=== PATIENT | male | born 1990 | race Caucasian/White ===

== ENCOUNTER 2017-04-05 17:19 | Emergency (ER) | payer SELFPAY ==
[2017-04-05 17:36] VITALS: BP 135/78
[2017-04-05] MEDS ORDERED: HYDROCODONE/ACETAMINOPHEN 5-325 MG TABLET PO ONE (19:13)
[2017-04-05] MEDS ORDERED: CEPHALEXIN 500 MG CAPSULE PO ONE (19:13)
[2017-04-05] MEDS ORDERED: DIPH/PERTUSS(ACELL)/TETANUS VAC/PF 0.5 ML SYR (>=10YO) IM ONE (19:13)
--- NOTE | 2017-04-05 19:18 | ER Document Report ---
HPI - HPI Patient complains to provider of: finger injury Onset: This afternoon Onset/Duration: Sudden Quality of pain: Sharp Pain Level: 4 Context: Patient states that he was using a nail gun to nail railing up. Patient was holding the board and the nail was aimed downward but hit a knot in the wood and bounced off of the knot puncturing his left fifth finger. Patient complains of left fifth finger pain is worse with movement. Patient states that he did clean the wound after the injury occurred. Associated Symptoms: Other - Left fifth finger injury Exacerbated by: Movement Relieved by: Denies Similar symptoms previously: No Recently seen / treated by doctor: No - ROS ROS below otherwise negative: Yes Systems Reviewed and Negative: Yes All other systems reviewed and negative - CONSTITUTIONAL Constitutional: DENIES: Fever, Chills - NEURO Neurology: DENIES: Weakness - MUSCULOSKELETAL Musculoskeletal: REPORTS: Extremity pain - Left fifth finger pain - DERM Skin Color: Normal Skin Problems: Puncture Wound Past Medical History - General Information source: Patient - Social History Smoking Status: Current Every Day Smoker Frequency of alcohol use: None Drug Abuse: None Occupation: construction Lives with: Family Family History: Reviewed & Not Pertinent Patient has suicidal ideation: No Patient has homicidal ideation: No - Medical History Medical History: Negative Renal/ Medical History: Denies: Hx Peritoneal Dialysis Past Surgical History: Reports: Hx Orthopedic Surgery - right wrist surg. - Immunizations Hx Diphtheria, Pertussis, Tetanus Vaccination: Yes Vertical Provider Document - CONSTITUTIONAL Agree With Documented VS: Yes Exam Limitations: No Limitations General Appearance: WD/WN, No Apparent Distress - INFECTION CONTROL TRAVEL OUTSIDE OF THE [place] IN LAST 30 DAYS: No - HEENT HEENT: Atraumatic, Normocephalic - NECK Neck: Normal Inspection - RESPIRATORY Respiratory: No Respiratory Distress O2 Sat by Pulse Oximetry: 99 - CARDIOVASCULAR Pulses: Normal: Radial - MUSCULOSKELETAL/EXTREMETIES Musculoskeletal/Extremeties: MAEW, Tender - Left fifth finger tenderness about the PIP joint. Patient with superficial appearing puncture wound to ulnar aspect of left fifth finger near the PIP joint, No Edema. negative: Eccymosis - NEURO Level of Consciousness: Awake, Alert, Appropriate Motor/Sensory: No Motor Deficit - DERM Integumentary: Warm, Dry Notes: Puncture wound to left fifth finger. Course - Re-evaluation Re-evalutation: 04/05/17 19:18 The patient has been informed that they may have pre-hypertension or hypertension based on a blood pressure reading in the emergency department. I recommend that patient call the primary care provider listed on their discharge instructions or a physician of their choice by this week to arrange follow-up for further evaluation of possible pre-hypertension her hypertension. - Vital Signs Vital signs: Temp Pulse Resp BP Pulse Ox 98.6 F 71 16 135/78 H 99 04/05/17 17:35 04/05/17 17:35 04/05/17 17:35 04/05/17 17:35 04/05/17 17:35 - Diagnostic Test Radiology reviewed: Pending, Image reviewed Procedures - Immobilization Left 5th digit Pre-Proc Neuro Vasc Exam: Normal Immobilizer type: Finger splint (Static) Performed by: PCT Post-Proc Neuro Vasc Exam: Normal Alignment checked and good: Yes Discharge - Discharge Clinical Impression: Puncture wound, Elevated blood pressure reading Injury of finger Qualifiers: Encounter type: initial encounter Laterality: left Qualified Code(s): S69.92XA - Unspecified injury of left wrist, hand and finger(s), initial encounter Condition: Stable Disposition: HOME, SELF-CARE Instructions: Puncture Wound ([facility]), Cephalexin ([facility]), Tetanus Immunization Given ([facility]) Additional Instructions: Return immediately for any new or worsening symptoms Followup with your primary care provider, call tomorrow to make a followup appointment Follow up with orthopedic hand specialist on Friday for any continued pain or problems Your blood pressure was elevated today, recheck with primary doctor in the next week to have this reevaluated. Prescriptions: Cephalexin Monohydrate [Keflex 500 mg Capsule] 500 mg PO Q6H 5 Days Hydrocodone/Acetaminophen [Millsap 5-325 Tablet] 1 each PO Q4 PRN #15 tablet PRN Reason: Forms: Elevated Blood Pressure, Return to Work Referrals: IRAIDA MAGANA DO [ACTIVE STAFF] - 04/07/17
== END 2017-04-05 19:52 | disposition home or self-care (01) ==
LOC: ER 17:19
PROC: 2W3KX1Z Immobilization of Left Finger using Splint (ICD-10-PCS; principal; 2017-04-05)
DX: S69.92XA Unspecified injury of left wrist, hand and finger(s), initial encounter (principal); S61.237A Puncture wound without foreign body of left little finger without damage to nail, initial encounter; R03.0 Elevated blood-pressure reading, without diagnosis of hypertension; W26.8XXA Contact with other sharp object(s), not elsewhere classified, initial encounter
CPT/HCPCS: 90471; 90715; 99283

== ENCOUNTER 2018-04-15 17:19 | Emergency (ER) | payer SELFPAY ==
[2018-04-15] MEDS ORDERED: FENTANYL CITRATE INJ/PF 100 MCG/2 ML AMPUL IV ONE (17:31)
[2018-04-15] MEDS ORDERED: CEFAZOLIN 1 GM/D5W RTU 1 GM/50 ML RTUPB IV ONE (17:33)
--- NOTE | 2018-04-15 17:33 | ER Document Report ---
ED Medical Screen (RME) - General Chief Complaint: Foreign Body Stated Complaint: HAND INJURY Time Seen by Provider: 04/15/18 17:29 Notes: RAPID MEDICAL EVALUATION DISCLOSURE I have seen this patient as part of a Rapid Medical Evaluation and, if applicable, placed any initially appropriate orders. The patient will be seen and fully evaluated, including a full history and physical exam, by a provider ( in Main ED or Fast Track) when a room becomes available. 27-year-old male here with complaints of left thumb pain after he shot himself in the thumb with a nail gun EXAM Nail protruding from left thumb TRAVEL OUTSIDE OF THE [place] IN LAST 30 DAYS: No - Related Data Allergies/Adverse Reactions: No Known Allergies Allergy (Verified 04/15/18 17:22) Past Medical History - Social History Chew tobacco use (# tins/day): No Frequency of alcohol use: Occasional Drug Abuse: None Renal/ Medical History: Denies: Hx Peritoneal Dialysis Past Surgical History: Reports: Hx Orthopedic Surgery - right wrist surg. - Immunizations Hx Diphtheria, Pertussis, Tetanus Vaccination: Yes Physical Exam - Vital signs Vitals: Temp Pulse Resp BP Pulse Ox 98.4 F 97 24 H 135/81 H 99 04/15/18 17:25 04/15/18 17:25 04/15/18 17:25 04/15/18 17:25 04/15/18 17:25 Course - Vital Signs Vital signs: Temp Pulse Resp BP Pulse Ox 98.4 F 97 24 H 135/81 H 99 04/15/18 17:25 04/15/18 17:25 04/15/18 17:25 04/15/18 17:25 04/15/18 17:25
[2018-04-15] MEDS ORDERED: HYDROMORPHONE HCL INJ/PF 2 MG/ML AMPULE IV ONE ×2 (18:07→18:59)
[2018-04-15] MEDS ORDERED: LIDOCAINE 1% INJ-PF (10 MG/ML) 30 ML SDV ONE (18:14)
--- NOTE | 2018-04-15 18:44 | RADIOLOGY REPORT (SQ) ---
EXAM DESCRIPTION: FINGER LEFT COMPLETED DATE/TIME: 04/15/2018 6:03 pm REASON FOR STUDY: nail in L thumb COMPARISON: None. NUMBER OF VIEWS: Three views. TECHNIQUE: AP, lateral, and oblique images acquired of the left thumb. LIMITATIONS: None. FINDINGS: MINERALIZATION: Normal. BONES: There is a bent nail that appears to be in the volar aspect of the 1st distal phalanx. SOFT TISSUES: No soft tissue swelling. No foreign body. OTHER: No other significant finding. IMPRESSION: Nail in the 1st distal phalanx. It may be helpful to obtain some tangential views to se e if this is in the bone or merely adjacent to the bone. COMMENT: SITE OF TRAUMA/COMPLAINT MARKED/STAMP COMPLETED: Yes TECHNICAL DOCUMENTATION: JOB ID: [id number] [employer]- All Rights Reserved Reading location - IP/workstation name: [email or web address]
--- NOTE | 2018-04-15 18:51 | ER Document Report ---
ED General - General Chief Complaint: Foreign Body Stated Complaint: HAND INJURY Time Seen by Provider: 04/15/18 17:29 TRAVEL OUTSIDE OF THE [place] IN LAST 30 DAYS: No - HPI Notes: 27-year-old male who presents with foreign body in his left thumb. Just prior to arrival, patient was using a nail gun when he accidentally shot himself in the volar surface of his thumb embedded in nail which she cut the top off of. Complains of severe sharp pain, throbbing, nonradiating. No numbness. He is right-hand dominant. Tetanus up-to-date within 5 years. He was seen by the physician in triage ordered x-rays and Ancef. He also received additional opiate analgesics. No other modifying factors, no other associated symptoms, no other provocative or palliative factors. - Related Data Allergies/Adverse Reactions: No Known Allergies Allergy (Verified 04/15/18 17:22) Past Medical History - Social History Smoking Status: Current Every Day Smoker Chew tobacco use (# tins/day): No Frequency of alcohol use: Occasional Drug Abuse: None Family History: Reviewed & Not Pertinent Patient has suicidal ideation: No Patient has homicidal ideation: No Renal/ Medical History: Denies: Hx Peritoneal Dialysis Past Surgical History: Reports: Hx Orthopedic Surgery - right wrist surg. - Immunizations Hx Diphtheria, Pertussis, Tetanus Vaccination: Yes Review of Systems - Review of Systems Notes: Review of systems as in history of present illness, otherwise no significant headache, chest pain, abdominal pain. Physical Exam - Vital signs Vitals: Temp Pulse Resp BP Pulse Ox 98.4 F 97 24 H 135/81 H 99 04/15/18 17:25 04/15/18 17:25 04/15/18 17:25 04/15/18 17:25 04/15/18 17:25 - Notes Notes: General: Well-developed, well-nourished HEENT: Normocephalic. No external trauma noted. No calabrese sign, no hemotympanum. Mucosa is moist. No intraoral trauma. Neck: Midline trachea, no JVD. No midline cervical spine tenderness. No step- off or deformity. Chest: Normal excursion, no accessory muscle use. No gross trauma. Abdomen: Soft, nondistended. Nontender. No bruising. Pelvis: Stable. Vascular: Strong and symmetric upper and lower extremity pulses. Well-perfused extremities. Motor: Normal tone and power. Neurologic: Alert, nonfocal. Sensation symmetric and intact. Skin: No significant lacerations or purpura. Extremities: No cyanosis. There is a large nail extending on the dorsal surface of the distal thumb pad. Thumb is dirty, bleeding is controlled. Distal sensation intact. Cap refill is normal Course - Re-evaluation Re-evalutation: 04/15/18 18:50 7-year-old male the after mentioned symptoms. Plain films are reviewed, I could visualize the nail but does not appear to involve bone, no fractures noted. However there is a small melody noted on the intra-tissue portion. Patient did undergo digital block with 1% lidocaine. I attempted to remove the foreign body but was unable to do so. We are going to repeat the x-ray to see where the melody is located. 04/15/18 20:03 Patient repeat x-ray shows some movement but melody is still retained. Case discussed with the on-call orthopedic surgeon, after discussion we elected to proceed with small local incision to allow release of the bar and attempted removal again. This was successful and done as described below. Repeat x-ray shows no retained foreign body. There appears to be a small fracture fragment on the films. He is placed on aluminum splint, sent home on Keflex, analgesics, will follow up as an outpatient with orthopedic surgery. Procedure note: Digital block was performed previously. Areas cleansed using chlorhexidine. After sterile draping a small 3 mm incision is made down at the base of the foreign body extended proximally. Was able to then easily remove the foreign body, bleeding is controlled. Prior to that wound is irrigated. - Vital Signs Vital signs: Temp Pulse Resp BP Pulse Ox 98.4 F 97 24 H 135/81 H 99 04/15/18 17:25 04/15/18 17:25 04/15/18 17:25 04/15/18 17:25 04/15/18 17:25 Discharge - Discharge Clinical Impression: Foreign body hand Qualifiers: Encounter type: initial encounter Laterality: left Qualified Code(s): S60.552A - Superficial foreign body of left hand, initial encounter Disposition: HOME, SELF-CARE Instructions: Foreign Body ([facility]) Prescriptions: Cephalexin Monohydrate [Keflex 500 mg Capsule] 500 mg PO Q6H 7 Days capsule Hydrocodone Bit/Acetaminophen [Hydrocodon-Acetaminophen 5-325] 1 each PO Q6 2 Days tablet
--- NOTE | 2018-04-15 19:14 | RADIOLOGY REPORT (SQ) ---
EXAM DESCRIPTION: FINGER LEFT COMPLETED DATE/TIME: 04/15/2018 6:59 pm REASON FOR STUDY: Assess melody location on FB after removal attempt COMPARISON: None. NUMBER OF VIEWS: Two views. TECHNIQUE: AP and lateral images acquired of the left thumb. LIMITATIONS: None. FINDINGS: Additional views of the left thumb once again show a nail on the volar aspect of the dista l phalanx. This cannot be from the bone on any of the images we have so far. IMPRESSION: The nail may be within the bone of the distal phalanx on the volar aspect COMMENT: SITE OF TRAUMA/COMPLAINT MARKED/STAMP COMPLETED: YES. TECHNICAL DOCUMENTATION: JOB ID: [id number] [employer]- All Rights Reserved Reading location - IP/workstation name: [email or web address]
--- NOTE | 2018-04-15 20:29 | RADIOLOGY REPORT (SQ) ---
EXAM DESCRIPTION: FINGER LEFT COMPLETED DATE/TIME: 04/15/2018 8:05 pm REASON FOR STUDY: FB removal COMPARISON: None. NUMBER OF VIEWS: Two views. TECHNIQUE: AP and lateral images acquired of the left thumb. LIMITATIONS: None. FINDINGS: MINERALIZATION: Normal. BONES: No acute fracture or dislocation. No worrisome bone lesions. SOFT TISSUES: No soft tissue swelling. No foreign body. OTHER: No other significant finding. IMPRESSION: NO RADIOGRAPHIC EVIDENCE OF ACUTE INJURY. COMMENT: SITE OF TRAUMA/COMPLAINT MARKED/STAMP COMPLETED: Yes TECHNICAL DOCUMENTATION: JOB ID: [id number] [employer]- All Rights Reserved Reading location - IP/workstation name: [email or web address]
[2018-04-15] MEDS ORDERED: HYDROCODONE/ACETAMINOPHEN 5-325 MG TABLET PO ONE (20:31)
[2018-04-15 20:50] VITALS: BP 127/81
== END 2018-04-15 20:50 | disposition home or self-care (01) ==
LOC: ER 17:19
PROC: 0JCK0ZZ Extirpation of Matter from Left Hand Subcutaneous Tissue and Fascia, Open Approach (ICD-10-PCS; principal; 2018-04-15)
DX: S61.142A Puncture wound with foreign body of left thumb with damage to nail, initial encounter (principal); W29.4XXA Contact with nail gun, initial encounter; F17.200 Nicotine dependence, unspecified, uncomplicated
CPT/HCPCS: 99283; 96375; 96365; 73140; 20103; J0690; J3010; J3490; J1170

== ENCOUNTER 2018-05-07 17:26 | Emergency (ER) | payer SELFPAY ==
[2018-05-07] MEDS ORDERED: FAMOTIDINE 20 MG TABLET PO ONE (18:18)
[2018-05-07] MEDS ORDERED: DEXAMETHASONE SOD PHOS INJ 10 MG/1 ML VIAL IM ONE (18:18)
[2018-05-07] MEDS ORDERED: DIPHENHYDRAMINE HCL 50 MG/ML VIAL IM ONE (18:18)
--- NOTE | 2018-05-07 18:23 | ER Document Report ---
ED Allergic Reaction - General Chief Complaint: Allergic Reaction Stated Complaint: POSSIBLE BEE STING Time Seen by Provider: 05/07/18 18:02 Mode of Arrival: Ambulatory Information source: Patient Notes: 27-year-old male presented ED for complaint of pain to his right foot after he was stung by wasp yesterday. He states he took 25 mg of Benadryl yesterday and has not had any since then. He has not taken any Tylenol or Motrin for this pain. TRAVEL OUTSIDE OF THE [place] IN LAST 30 DAYS: No - HPI Onset: Yesterday Onset/Duration: Persistent Quality of pain: Achy Severity: Moderate Pain Level: 2 Identified cause: No - Stung by a bee Swelling: Feet - Right foot and ankle Associated symptoms: None Similar symptoms previously: Yes Recently seen / treated by doctor: No - Related Data Allergies/Adverse Reactions: wasps Allergy (Uncoded 05/07/18 17:28) Past Medical History - General Information source: Patient - Social History Smoking Status: Current Every Day Smoker Cigarette use (# per day): Yes - One half pack per day Chew tobacco use (# tins/day): No Smoking Education Provided: Yes - 4 minutes Frequency of alcohol use: None Drug Abuse: None Lives with: Family Family History: Reviewed & Not Pertinent Patient has suicidal ideation: No Patient has homicidal ideation: No - Past Medical History Cardiac Medical History: Reports: None Pulmonary Medical History: Reports: None EENT Medical History: Reports: None Neurological Medical History: Reports: None Endocrine Medical History: Reports: None Renal/ Medical History: Reports: None Malignancy Medical History: Reports None GI Medical History: Reports: None Musculoskeltal Medical History: Reports Hx Musculoskeletal Deformity, Reports Hx Musculoskeletal Trauma Skin Medical History: Reports None Psychiatric Medical History: Reports: None Traumatic Medical History: Reports: Hx Fractures - Right wrist fracture right thumb Infectious Medical History: Reports: None Past Surgical History: Reports: Hx Oral Surgery - Silver teeth, Hx Orthopedic Surgery - right wrist surg. - Immunizations Hx Diphtheria, Pertussis, Tetanus Vaccination: Yes Review of Systems - Review of Systems Constitutional: No symptoms reported EENT: No symptoms reported Cardiovascular: No symptoms reported Respiratory: No symptoms reported Gastrointestinal: No symptoms reported Genitourinary: No symptoms reported Male Genitourinary: No symptoms reported Musculoskeletal: No symptoms reported Skin: Other - Pain swelling to right foot and ankle from a wasp sting yesterday Hematologic/Lymphatic: No symptoms reported Neurological/Psychological: No symptoms reported Physical Exam - Vital signs Vitals: Temp Pulse Resp BP Pulse Ox 98.1 F 110 H 18 122/97 H 98 05/07/18 17:32 05/07/18 17:32 05/07/18 17:32 05/07/18 17:32 05/07/18 17:32 Interpretation: Normal - General General appearance: Appears well, Alert - HEENT Head: Normocephalic, Atraumatic Eyes: Normal Pupils: PERRL - Respiratory Respiratory status: No respiratory distress Chest status: Nontender Breath sounds: Normal Chest palpation: Normal - Cardiovascular Rhythm: Regular Heart sounds: Normal auscultation Murmur: No - Abdominal Inspection: Normal Distension: No distension Bowel sounds: Normal Tenderness: Nontender Organomegaly: No organomegaly - Back Back: Normal, Nontender - Extremities General upper extremity: Normal inspection, Nontender, Normal color, Normal ROM , Normal temperature General lower extremity: Normal color, Normal ROM, Normal temperature, Normal weight bearing. No: Corinne's sign Ankle: Tender, Edema. No: Limited ROM, Unable to bear weight Foot: Tender, Edema - Due to a bee sting, No evidence of FB. No: Unable to bear weight - Neurological Neuro grossly intact: Yes Cognition: Normal Orientation: AAOx4 Lisa Coma Scale Eye Opening: Spontaneous Lisa Coma Scale Verbal: Oriented [place] Coma Scale Motor: Obeys Commands Lisa Coma Scale Total: 15 Speech: Normal Motor strength normal: LUE, RUE, LLE, RLE Sensory: Normal - Psychological Associated symptoms: Normal affect, Normal mood - Skin Skin Temperature: Warm Skin Moisture: Dry Skin Color: Normal Course - Re-evaluation Re-evalutation: 05/07/18 21:14 Patient was treated with Decadron Benadryl and Pepcid in the emergency room for swelling and pain from an insect bite. He was discharged home with prescription for Vistaril and prednisone and instructed to follow-up with his primary doctor. - Vital Signs Vital signs: Temp Pulse Resp BP Pulse Ox 98.1 F 88 18 120/83 99 05/07/18 17:32 05/07/18 18:32 05/07/18 18:32 05/07/18 18:32 05/07/18 18:32 Discharge - Discharge Clinical Impression: Bee sting reaction Qualifiers: Encounter type: initial encounter Injury intent: accidental or unintentional Qualified Code(s): T63.441A - Toxic effect of venom of bees, accidental ( unintentional), initial encounter Condition: Stable Disposition: HOME, SELF-CARE Instructions: Family Physicians / Practices Additional Instructions: Insect Sting You've been stung by an insect. The venom can cause pain, redness, and swelling. Right after the sting, we sometimes use adrenaline to reduce the reaction to the venom. This also stops any allergic reaction. You should apply cold compresses, rest and elevate the affected part, and take antihistamines. A more severe, itchy red swelling sometimes develops the next day. This is a local allergic reaction to the venom. This local allergy isn't dangerous. We treat it with cortisone-type medicine and antihistamines. Sometimes we use antibiotics if we're worried about infection. If you develop a fever, chills, a red streak, or swollen glands in the area of the bite, infection may be starting. Return at once. Insect stings from the bee and hornet family may cause a severe allergic reaction. Symptoms include hoarseness, shortness of breath, general redness of the skin, general itching, or lightheadedness. If any of these symptoms occur, you'll be treated with adrenalin and cortisone-like steroids. You should carry an "Anaphylaxis Kit" with you in the summer months so you can administer these medications to yourself before getting emergency medical care. STEROID MEDICATION INJECTION: You have been given an injection of medicine of the cortisone/steroid class. This medication is used to control inflammation or allergy. It is often continued as a pill for a short period of time, until the acute process subsides. There are usually no side effects from short-term use of cortisone-like medications. Some persons feel an increased sense of well-being and are not sleepy at bedtime. Long-term use of cortisone medications is best avoided, unless required for a severe condition. If your condition does not remit, or relapses after the course of corticosteroid medication, you should consult your physician. STEROID MEDICATION: You have been given a medicine of the cortisone/steroid class. This medication is used to control inflammation or allergy. It is usually only given for a short period of time, until the acute process subsides. There are usually no side effects from short-term use of cortisone-like medications. Some persons feel an increased sense of well-being and are not sleepy at bedtime. Long-term use of cortisone medications is best avoided, unless required for a severe condition. If your condition does not remit, or relapses after the course of corticosteroid medication, you should consult your physician. ACID-SUPPRESSING MEDICATION: You have a prescription for medicine which reduces the stomach's secretion of acid. Examples include Zantac, Tagament, and Pepcid. These drugs are often used to allow healing of ulcers or esophagitis. They may be needed to prevent recurrence of ulcers in some patients, or to prevent damage from acid reflux in the esophagus. Take all medication as prescribed, even after the pain is gone. Regular antacids may be added as needed if you have symptoms while taking this medicine. These medications sometimes are prescribed for allergic reactions because they have anti-histaminic effects and relieve the rash and itching of the reaction. There are usually no side effects from this medication. But, in rare cases and particularly in the elderly, serious problems can occur. Contact your doctor if there is fever, rash, hallucinations, confusion, or unusual bruising. Contact your doctor at once if you develop lightheadedness, black or bloody stool, or bloody vomitus. ANTIHISTAMINES: An antihistamine has been given and/or prescribed to control your symptoms. Antihistamines are used for many reasons, including itching, watering eyes, runny nose, allergic swelling, hives, and insect stings. Antihistamines may cause drowsiness, especially with the first dose. Do not operate machinery or drive while under the effects of the medication. Other common side effects include dry mouth and eyes. In older persons, antihistamines can occasionally cause urinary retention, constipation, and trouble focusing the eyes. Do not combine the medication with alcohol, or with any other medication without talking to your doctor. USE OF DIPHENHYDRAMINE: The use of diphenhydramine (Benadryl) has been recommended to control allergic symptoms. The 25 mg strength is available over- the-counter, as well as the elixir. This antihistamine is used for many symptoms. It's useful for itching, watering eyes and nose, allergic swelling, hives, and insect stings. The medication can be repeated four times daily. Age Elixir (12.5 mg/tsp) 25 mg pill 2-3 yr 1/2 tsp 4-8 yr 1 tsp 9-14 yr 2 tsp one tab adult 1-2 tabs Antihistamines may cause drowsiness, especially with the first dose. Do not operate machinery or drive while under the effects of the medication. Do not combine the medication with alcohol, or with any other medication without talking to your doctor. FOLLOW-UP CARE: If you have been referred to a physician for follow-up care, call the physician s office for an appointment as you were instructed or within the next two days. If you experience worsening or a significant change in your symptoms, notify the physician immediately or return to the Emergency Department at any time for re-evaluation. Prescriptions: Hydroxyzine Pamoate [Vistaril 50 mg Capsule] 50 mg PO BIDP PRN #14 capsule PRN Reason: Prednisone [Deltasone 20 mg Tablet] 3 tab PO DAILY 4 Days tablet Forms: Elevated Blood Pressure, Smoking Cessation Education, Return to Work
[2018-05-07 18:34] VITALS: BP 120/83
== END 2018-05-07 18:32 | disposition home or self-care (01) ==
LOC: ER 17:26
DX: T63.461A Toxic effect of venom of wasps, accidental (unintentional), initial encounter (principal); F17.210 Nicotine dependence, cigarettes, uncomplicated
CPT/HCPCS: 99406; 99283; 96372; J1200; J1100

== ENCOUNTER 2018-07-28 15:59 | Emergency (ER) | payer SELFPAY ==
[2018-07-28 16:32] VITALS: BP 128/79
== END 2018-07-28 16:47 | disposition left against medical advice (07) ==
LOC: ER 15:59
DX: T67.5XXA Heat exhaustion, unspecified, initial encounter (principal); Z53.21 Procedure and treatment not carried out due to patient leaving prior to being seen by health care provider

== ENCOUNTER 2018-12-05 12:38 | Emergency (ER) | payer SELFPAY ==
[2018-12-05] MEDS ORDERED: CEPHALEXIN 500 MG CAPSULE PO ONE (12:53)
[2018-12-05] MEDS ORDERED: MORPHINE SULFATE 10 MG/ML INJ IM ONE (12:53)
[2018-12-05] MEDS ORDERED: ONDANSETRON 4 MG TAB.RAPDIS PO ONE (12:53)
--- NOTE | 2018-12-05 12:55 | ER Document Report ---
ED Medical Screen (RME) - General Chief Complaint: Puncture Wound Stated Complaint: NAIL THROUGH FINGER Time Seen by Provider: 12/05/18 12:50 Notes: 28-year-old male patient shot a nail through his left index finger. Nail enters the volar distal aspect of the middle phalanx and exits dorsally in the distal middle phalanx. Last Tdap was in March 2017. I have greeted and performed a rapid initial assessment of this patient. A comprehensive ED assessment and evaluation of the patient, analysis of test results and completion of the medical decision making process will be conducted by additional ED providers. TRAVEL OUTSIDE OF THE [place] IN LAST 30 DAYS: No - Related Data Allergies/Adverse Reactions: wasps Allergy (Uncoded 12/05/18 12:54) Past Medical History - Social History Chew tobacco use (# tins/day): No Frequency of alcohol use: None Drug Abuse: None Renal/ Medical History: Denies: Hx Peritoneal Dialysis Musculoskeltal Medical History: Reports Hx Musculoskeletal Deformity, Reports Hx Musculoskeletal Trauma Traumatic Medical History: Reports: Hx Fractures - Right wrist fracture right thumb Past Surgical History: Reports: Hx Oral Surgery - [place] teeth, Hx Orthopedic Surgery - right wrist surg. - Immunizations Hx Diphtheria, Pertussis, Tetanus Vaccination: Yes Physical Exam - Vital signs Vitals: Temp Pulse Resp BP Pulse Ox 97.8 F 102 H 18 126/72 H 99 12/05/18 12:43 12/05/18 12:43 12/05/18 12:43 12/05/18 12:43 12/05/18 12:43 Course - Vital Signs Vital signs: Temp Pulse Resp BP Pulse Ox 97.8 F 102 H 18 126/72 H 99 12/05/18 12:43 12/05/18 12:43 12/05/18 12:43 12/05/18 12:43 12/05/18 12:43
[2018-12-05] MEDS ORDERED: MORPHINE SULFATE 10 MG/ML INJ IV ONE (13:21)
[2018-12-05] MEDS ORDERED: KETOROLAC TROMETHAMINE INJ/PF 30 MG/1 ML SDV IV ONE (13:21)
[2018-12-05] MEDS ORDERED: NORMAL SALINE 500 ML IV ONE (13:21)
[2018-12-05] MEDS ORDERED: LIDOCAINE 2% INJ (20 MG/ML) 20 ML MDV INJ ONE (13:24)
--- NOTE | 2018-12-05 13:24 | RADIOLOGY REPORT (SQ) ---
EXAM DESCRIPTION: FINGER LEFT COMPLETED DATE/TIME: 12/05/2018 1:12 pm REASON FOR STUDY: Nail through left index finger COMPARISON: None. NUMBER OF VIEWS: Three views. TECHNIQUE: AP, lateral, and oblique images acquired of the left second finger. LIMITATIONS: None. FINDINGS: MINERALIZATION: Normal. BONES: There is a nail present through the middle phalanx of the seconds digit. Midshaft fracture. SOFT TISSUES: No soft tissue swelling. No foreign body. OTHER: No other significant finding. IMPRESSION: Midshaft fracture middle phalanx seconds digit secondary to a nail foreign body. TECHNICAL DOCUMENTATION: JOB ID: [id number] [employer]- All Rights Reserved Reading location - IP/workstation name: [email or web address]
[2018-12-05] MEDS ORDERED: BUPIVACAINE HCL 0.5 % INJ/PF 30 ML SDV INJ ONE (13:25)
[2018-12-05] MEDS ORDERED: HYDROMORPHONE HCL INJ/PF 2 MG/ML AMPULE IV ONE (14:19)
[2018-12-05] MEDS ORDERED: LORAZEPAM INJ 2 MG/1 ML VIAL IV ONE (14:54)
--- NOTE | 2018-12-05 15:13 | ER Document Report ---
ED General - General Chief Complaint: Puncture Wound Stated Complaint: NAIL THROUGH FINGER Time Seen by Provider: 12/05/18 12:50 TRAVEL OUTSIDE OF THE [place] IN LAST 30 DAYS: No - HPI Patient complains to provider of: Nail through the left index finger Notes: She was placing a fence today with a nail gun shot a nail through the blanks of the index finger. Patient states musicians are up-to-date otherwise no other injuries. Patient is in pain upon my evaluation. Patient has had nails in his hand before due to other recent guerrier injured - Related Data Allergies/Adverse Reactions: wasps Allergy (Uncoded 12/05/18 12:54) Past Medical History - Social History Smoking Status: Current Every Day Smoker Chew tobacco use (# tins/day): No Frequency of alcohol use: None Drug Abuse: None Family History: Reviewed & Not Pertinent Patient has suicidal ideation: No Patient has homicidal ideation: No Renal/ Medical History: Denies: Hx Peritoneal Dialysis Musculoskeletal Medical History: Reports Hx Musculoskeletal Deformity, Reports Hx Musculoskeletal Trauma Traumatic Medical History: Reports: Hx Fractures - Right wrist fracture right thumb Past Surgical History: Reports: Hx Oral Surgery - [place] teeth, Hx Orthopedic Surgery - right wrist surg. - Immunizations Hx Diphtheria, Pertussis, Tetanus Vaccination: Yes Review of Systems - Review of Systems Constitutional: No symptoms reported EENT: No symptoms reported Cardiovascular: No symptoms reported Respiratory: No symptoms reported Gastrointestinal: No symptoms reported Genitourinary: No symptoms reported Male Genitourinary: No symptoms reported Musculoskeletal: Other - Nail in the hand Skin: No symptoms reported Hematologic/Lymphatic: No symptoms reported Neurological/Psychological: No symptoms reported Physical Exam - Vital signs Vitals: Temp Pulse Resp BP Pulse Ox 97.8 F 102 H 18 126/72 H 99 12/05/18 12:43 12/05/18 12:43 12/05/18 12:43 12/05/18 12:43 12/05/18 12:43 Interpretation: Normal - General General appearance: Appears well, Alert - HEENT Head: Normocephalic, Atraumatic Eyes: Normal Pupils: PERRL - Respiratory Respiratory status: No respiratory distress Chest status: Nontender Breath sounds: Normal Chest palpation: Normal - Cardiovascular Rhythm: Regular Heart sounds: Normal auscultation Murmur: No - Abdominal Inspection: Normal Distension: No distension Bowel sounds: Normal Tenderness: Nontender Organomegaly: No organomegaly - Back Back: Normal, Nontender - Extremities General upper extremity: Normal color, Normal temperature, Other - Patient with a nail going through the middle phalanx of the index finger capillary refill intact tender to touch otherwise rest of the hands involved. No: Normal inspection General lower extremity: Normal inspection, Nontender, Normal color, Normal ROM, Normal temperature, Normal weight bearing. No: Corinne's sign - Neurological Neuro grossly intact: Yes Cognition: Normal Orientation: AAOx4 Lisa Coma Scale Eye Opening: Spontaneous [place] Coma Scale Verbal: Oriented [place] Coma Scale Motor: Obeys Commands Lisa Coma Scale Total: 15 Speech: Normal Motor strength normal: LUE, RUE, LLE, RLE Sensory: Normal - Psychological Associated symptoms: Normal affect, Normal mood - Skin Skin Temperature: Warm Skin Moisture: Dry Skin Color: Normal Course - Re-evaluation Re-evalutation: 12/05/18 15:29 Patient underwent a digital block and then localized anesthesia of lidocaine and Marcaine injected at the entrance site of the nail cleaned with alcohol swab for injection. Patient was also given morphine IM by triage doctor morphine IV by myself and a dose of Dilaudid patient continued to be in significant pain however he was able to touch his finger stating that he was able to still feel it explained to the patient that we could remove the nail very quickly however we would not be able to make him pain-free. Patient asked multiple times for sedation however patient is drinking water and drinking a Pepsi during his initial stay here in the ER expect to the patient that it would be approximately 5:00 until he could be consciously sedated and that the risk of sedation outw eigh the pain experienced from this removing the nail eventually patient does agree to let us remove now this was done with a pair of pliers patient was placed soaking irrigated with 2 L of fluid I did discuss the case with Dr. Magana who agrees with the above procedure follow-up in his office with start the patient on Augmentin for antibiotic coverage. Patient will be given oral morphine for his pain control at home also recommend Tylenol and Motrin. Patient was given a dose of Augmentin here in the ER. - Vital Signs Vital signs: Temp Pulse Resp BP Pulse Ox 97.8 F 68 16 100/62 99 12/05/18 16:26 12/05/18 16:26 12/05/18 16:26 12/05/18 16:26 12/05/18 16:26 Discharge - Discharge Clinical Impression: nail through finger Open fracture of middle phalanx of left index finger Qualifiers: Encounter type: initial encounter Fracture alignment: nondisplaced Qualified Code(s): S62.651B - Nondisplaced fracture of middle phalanx of left index finger, initial encounter for open fracture Condition: Good Disposition: HOME, SELF-CARE Instructions: Open Finger Tuft Fracture ([facility]) Additional Instructions: Please follow-up with the hand surgeon listed. Return to ER symptoms worsen follow-up with your primary care physician as needed. Please take the antibiotics as prescribed Please take the antibiotics until completion Please keep the wound clean and dry Prescriptions: Amox Tr/Potassium Clavulanate [Augmentin 875-125 Tablet] 1 tab PO BID 10 Days tablet Morphine Sulfate [Morphine Ir 15 Mg Tablet] 15 mg PO Q6 #14 tablet Forms: Return to Work Referrals: IRAIDA MAGANA DO [ACTIVE STAFF] - 12/07/18 Cosign for MLP Consult - Cosign -: I was personally available for consultation in the Emergency Department and serving as supervising physician for the MLP. Cosign for MLP: .
[2018-12-05] MEDS ORDERED: AMOXICILLIN TR/POT CLAVULANATE 500-125 MG TAB PO ONE (15:31)
[2018-12-05 16:30] VITALS: BP 100/62
== END 2018-12-05 16:15 | disposition home or self-care (01) ==
LOC: ER 12:38
DX: S62.651B Nondisplaced fracture of middle phalanx of left index finger, initial encounter for open fracture (principal); W45.0XXA Nail entering through skin, initial encounter; F17.200 Nicotine dependence, unspecified, uncomplicated
CPT/HCPCS: 99283; 96372; 96361; 96374; 96375; 73140; J3490 ×2; S0119; J1885; J2270; J1170; J2060; J7040

== ENCOUNTER 2019-04-15 00:36 | Emergency (ER) | payer SELFPAY ==
--- NOTE | 2019-04-15 02:04 | ER Document Report ---
HPI - HPI Time Seen by Provider: 04/15/19 01:49 Pain Level: 5 Notes: Patient is a 28-year-old male presents to the emergency department for left lower dental pain. Patient states that this has been present for months but has gotten worse since yesterday. Patient reports that it is a constant screeching type pain and feels like it is in the nerve. Patient does report multiple broken teeth and poor dentition. States having similar pain in the past and having been placed on antibiotics. Patient denies fever. Patient denies drainage or foul taste in his mouth. Patient states that the pain in his mouth radiates up into his ear. Patient does deny facial swelling. - NEURO Neurology: REPORTS: Headache Past Medical History - Social History Smoking Status: Current Every Day Smoker Chew tobacco use (# tins/day): No Frequency of alcohol use: None Drug Abuse: Marijuana Family History: Reviewed & Not Pertinent Patient has suicidal ideation: No Patient has homicidal ideation: No - Past Medical History Cardiac Medical History: Reports: None Pulmonary Medical History: Reports: None EENT Medical History: Reports: None Neurological Medical History: Reports: None Endocrine Medical History: Reports: None Renal/ Medical History: Reports: None. Denies: Hx Peritoneal Dialysis Malignancy Medical History: Reports None GI Medical History: Reports: None Musculoskeletal Medical History: Reports Hx Musculoskeletal Deformity, Reports Hx Musculoskeletal Trauma Skin Medical History: Reports None Psychiatric Medical History: Reports: None Traumatic Medical History: Reports: Hx Fractures - Right wrist fracture right thumb Infectious Medical History: Reports: None Past Surgical History: Reports: Hx Oral Surgery - [place] teeth, Hx Orthopedic Surgery - right wrist surg. - Immunizations Hx Diphtheria, Pertussis, Tetanus Vaccination: Yes Vertical Provider Document - CONSTITUTIONAL Agree With Documented VS: Yes Exam Limitations: No Limitations General Appearance: Moderate Distress - INFECTION CONTROL TRAVEL OUTSIDE OF THE [place] IN LAST 30 DAYS: No - HEENT HEENT: Atraumatic, Dental Injury - No obvious abscess or drainage., Normocephalic Mouth Diagram: 1 - Broken tooth down into the gum - NECK Neck: Normal Inspection - RESPIRATORY Respiratory: Breath Sounds Normal, No Respiratory Distress - CARDIOVASCULAR Cardiovascular: Regular Rate, Regular Rhythm - GI/ABDOMEN Gastrointestinal: Abdomen Soft, Abdomen Non-Tender - NEURO Level of Consciousness: Awake, Alert, Appropriate - DERM Integumentary: Warm, Dry Course - Re-evaluation Re-evalutation: 04/15/19 02:25 A dental dental block was offered due to patient's severe pain. Patient in agreement with receiving dental block. 04/15/19 02:40 Patient reports improvement of pain after dental block. Patient tolerated well. Will discharge with pain medication, antibiotics and follow up with [facility]. - Vital Signs Vital signs: Temp Pulse Resp BP Pulse Ox 97.4 F 70 16 131/87 H 98 04/15/19 00:42 04/15/19 00:42 04/15/19 00:42 04/15/19 00:42 04/15/19 00:42 Procedures - Additional Procedures Dental Block Time performed: 02:25 Additional Procedures: Other - Inferior alveolar dental block performed, injected a mixture of 1.5 ml of 1% lidocaine and 1.5 ml of 0.5% bupivacaine to the left lower mouth, aspirated without blood present. Injected a total of 3 mls. Very small amount of bleeding noted afterwards. Patient tolerated well. Discharge - Discharge Clinical Impression: Dental infection Condition: Stable Disposition: HOME, SELF-CARE Instructions: Oral Narcotic Medication (OM), Penicillin V K (OM), Toothache (OM) Additional Instructions: Today you have been diagnosed with a dental infection to the left lower mouth. At this time it does appear infected which we will give you antibiotics for 10 days. We will give you a narcotic called Gazelle, do not drive or operate heavy machinery while on this medication as it can make you drowsy. Today we have given you a dental block while in the emergency department, this can last up to 8 hours for pain control. When you start to feel discomfort or pain please take a pain pill. It is imperative that you follow-up with a dentist. I will provide you with a referral. Dental Infection or Abscess You have an infection, perhaps an abscess (pus formation) of the gum around one of your teeth, which is probably decayed. If there is an abscess, it may drain on its own or it may need to be opened or lanced. Severe swelling or drainage around a tooth usually means a deep dental abscess which usually re quires evaluation and treatment by a dentist or oral surgeon. Antibiotics may be prescribed while awaiting dental treatment. If you develop high fever with chills, worsening pain, or increasing swelling in the area, see a dentist or oral surgeon immediately or return to the Emergency Department immediately. Prescriptions: Penicillin V Potassium [Penicillin Vk 500 mg Tablet] 500 mg PO BID #20 tablet Referrals: [facility] [Provider Group] - Follow up as needed
[2019-04-15] MEDS ORDERED: BUPIVACAINE HCL 0.5 % INJ/PF 30 ML SDV INJ ONE (02:11)
[2019-04-15] MEDS ORDERED: LIDOCAINE 1% INJ (10 MG/ML) 10 ML MDV INJ ONE (02:11)
[2019-04-15] MEDS ORDERED: PENICILLIN V POTASSIUM 500 MG TABLET PO ONE (02:26)
[2019-04-15] MEDS ORDERED: HYDROCODONE/ACETAMINOPHEN 5-325 MG (6 TAB/ER DISP) PO PRN (02:26)
[2019-04-15 02:50] VITALS: BP 116/77
== END 2019-04-15 02:55 | disposition home or self-care (01) ==
LOC: ER 00:36
PROC: 3E0T3BZ Introduction of Anesthetic Agent into Peripheral Nerves and Plexi, Percutaneous Approach (ICD-10-PCS; principal; 2019-04-15)
DX: K04.7 Periapical abscess without sinus (principal); K08.89 Other specified disorders of teeth and supporting structures; S02.5XXA Fracture of tooth (traumatic), initial encounter for closed fracture; X58.XXXA Exposure to other specified factors, initial encounter; F17.200 Nicotine dependence, unspecified, uncomplicated
CPT/HCPCS: 99282; 64400; J3490

== ENCOUNTER 2019-07-01 00:53 | Emergency (ER) | payer SELFPAY ==
[2019-07-01] MEDS ORDERED: NORMAL SALINE 1000 ML 1,000 ML IV ONE (01:31)
[2019-07-01 01:32] VITALS: BP 122/75
--- NOTE | 2019-07-01 01:32 | ER Document Report ---
ED General - General Chief Complaint: Facial Swelling Stated Complaint: FACE SWELLING Time Seen by Provider: 07/01/19 01:30 Primary Care Provider: [facility] [Provider Group] - Follow up as needed MOUSTAPHA HERNANDEZ DO [ASSOCIATE] - Follow up as needed (Follow-up for possible drainage of abscess if symptoms continue) TRAVEL OUTSIDE OF THE [place] IN LAST 30 DAYS: No - HPI Patient complains to provider of: facial swelling Notes: Normally healthy 28-year-old male presents with right-sided facial swelling. Patient endorses pain in the right side of his face 10/10 stabbing in nature with radiation to the entire side of his face. Patient denies fever chills but he says the swelling is very concerning the pain is unbearable. Denies any difficulty swallowing. Patient has no acute medical history. - Related Data Allergies/Adverse Reactions: wasps Allergy (Uncoded 12/05/18 12:54) Past Medical History - General Information source: Patient - Social History Smoking Status: Unknown if Ever Smoked Lives with: Guardian Family History: Reviewed & Not Pertinent Renal/ Medical History: Denies: Hx Peritoneal Dialysis Musculoskeletal Medical History: Reports Hx Musculoskeletal Deformity, Reports Hx Musculoskeletal Trauma Traumatic Medical History: Reports: Hx Fractures - Right wrist fracture right thumb Past Surgical History: Reports: Hx Oral Surgery - [place] teeth, Hx Orthopedic Surgery - right wrist surg. - Immunizations Hx Diphtheria, Pertussis, Tetanus Vaccination: Yes Review of Systems - Review of Systems Notes: REVIEW OF SYSTEMS: CONSTITUTIONAL: -fevers, -chills EENT: Positive right-sided facial swelling and pain CARDIOVASCULAR: -chest pain, -syncope. RESPIRATORY: -cough, -SOB GASTROINTESTINAL: -abdominal pain, -nausea, -vomiting, -diarrhea GENITOURINARY: -dysuria, -hematuria MUSCULOSKELETAL: -back pain, -neck pain SKIN: -rash or skin lesions. HEMATOLOGIC: -easy bruising or bleeding. LYMPHATIC: -swollen, enlarged glands. NEUROLOGICAL: -altered mental status or loss of consciousness, -headache, -neurologic symptoms PSYCHIATRIC: -anxiety, -depression. ALL OTHER SYSTEMS REVIEWED AND NEGATIVE. Physical Exam - Vital signs Vitals: Temp Pulse Resp BP Pulse Ox 98.0 F 84 16 122/75 98 07/01/19 00:58 07/01/19 00:58 07/01/19 00:58 07/01/19 00:58 07/01/19 00:58 - Notes Notes: PHYSICAL EXAMINATION: GENERAL: Well-appearing, well-nourished and in no acute distress. HEAD: Atraumatic, normocephalic. EYES: Pupils equal round and reactive to light, extraocular movements intact, sc denny anicteric, conjunctiva are normal. ENT: swelling on right side of his face overlying the right zygomatic process. tender to palpation no overlying skin changes. No difficulty moving his right e ye. No fluctuance noted inside mouth, no obvious sign of infection his mouth, right upper premolar very tender to percussion NECK: Normal range of motion, supple without lymphadenopathy LUNGS: Breath sounds clear to auscultation bilaterally and equal. No wheezes rales or rhonchi. HEART: Regular rate and rhythm without murmurs ABDOMEN: Soft, nontender, normoactive bowel sounds. No guarding, no rebound. No masses appreciated. EXTREMITIES: Normal range of motion, no pitting or edema. No cyanosis. NEUROLOGICAL: Cranial nerves grossly intact. Normal speech, normal gait. Normal sensory and motor exams. PSYCH: Normal mood, normal affect. SKIN: Warm, Dry, normal turgor, no rashes or lesions noted. Course - Re-evaluation Re-evalutation: 07/01/19 01:46 Normally healthy 28-year-old male presents with increasing right-sided facial swelling located over the zygomatic process 07/01/19 02:51 08/11/19 08:58 extensive work up unremarkable, given appropriate meds for dental infection, will dc home improved f/u at dentist 08/11/19 09:00 - Vital Signs Vital signs: Temp Pulse Resp BP Pulse Ox 98.0 F 84 16 122/75 98 07/01/19 00:58 07/01/19 00:58 07/01/19 00:58 07/01/19 00:58 07/01/19 00:58 - Laboratory Result Diagrams: 07/01/19 01:40 07/01/19 02:05 Laboratory results interpreted by me: 07/01/19 01:40 WBC 11.1 H Hgb 13.1 L Eosinophils % 12.5 H Absolute Eosinophils 1.4 H Discharge - Discharge Clinical Impression: Dental infection Condition: Stable Disposition: HOME, SELF-CARE Instructions: Dental Infection or Abscess ([facility]) Prescriptions: Oxycodone HCl [Oxycodone HCl 10 MG Tablet] 5 - 10 mg PO Q6H PRN #10 tablet PRN Reason: PAIN Sulfamethoxazole/Trimethoprim [Bactrim Ds Tablet] 1 each PO BID 7 Days #14 Referrals: [facility] [Provider Group] - Follow up as needed MOUSTAPHA HERNANDEZ DO [ASSOCIATE] - Follow up as needed (Follow-up for possible dr valera of abscess if symptoms continue)
[2019-07-01] MEDS ORDERED: MORPHINE SULFATE 10 MG/ML INJ IV ONE (01:47)
[2019-07-01 01:51] LABS: ABSOLUTE BASOPHILS # (AUTO) 0.1 10^3/uL (0.0-0.2); ABSOLUTE EOSINOPHILS # (AUTO) 1.4 10^3/uL (0.0-0.6); ABSOLUTE LYMPHOCYTES (AUTO) 2.4 10^3/uL (0.5-4.7); ABSOLUTE NEUT (AUTO) 6.3 10^3/uL (1.7-8.2); BASOPHILS % (AUTO) 0.7 % (0-2); EOSINOPHILS % (AUTO) 12.5 % (0-6); HEMATOCRIT 39.6 % (37.9-51.0); HEMOGLOBIN 13.1 g/dL (13.5-17.0); LYMPHOCYTES % (AUTO) 21.3 % (13-45); MEAN CORPUSCULAR HEMOGLOBIN 29.2 pg (27.0-33.4); MEAN CORPUSCULAR HGB CONC 33.2 g/dL (32.0-36.0); MEAN CORPUSCULAR VOLUME 88 fl (80-97); MONOCYTES % (AUTO) 8.5 % (3-13); PLATELET COUNT 216 10^3/uL (150-450); RED BLOOD COUNT 4.51 10^6/uL (4.35-5.55); RED CELL DISTRIBUTION WIDTH 13.5 % (11.5-14.0); TOTAL CELLS COUNTED % (AUTO) 100 %; WHITE BLOOD COUNT 11.1 10^3/uL (4.0-10.5)
[2019-07-01 02:42] LABS: ANION GAP 5 (5-19); BLOOD UREA NITROGEN 12 mg/dL (7-20); CALCIUM 8.8 mg/dL (8.4-10.2); CARBON DIOXIDE 30 mmol/L (22-30); CHLORIDE 104 mmol/L (98-107); GLUCOSE 93 mg/dL (75-110); POTASSIUM 4.1 mmol/L (3.6-5.0)
[2019-07-01] MEDS ORDERED: SULFAMETHOXAZOLE/TRIMETHOPRIM 800-160 MG TABLET PO ONE (03:01)
--- NOTE | 2019-07-01 03:06 | RADIOLOGY REPORT (SQ) ---
EXAM DESCRIPTION: CT MAXILLOFACIAL WITH IV CONTRAST COMPLETED DATE/TME: 07/01/2019 01:37 CLINICAL HISTORY: 28 years, Male, right sided facial swelling COMPARISON: None. TECHNIQUE: 230 Images stored on PACS. All CT scanners at this facility use dose modulation, iterative reconstruction, and/or weight based dosing when appropriate to reduce radiation dose to as low as reasonably achievable (ALARA). [facility]: Dose Right [facility]: CareDose [facility]: Dose Right [facility]: Teradose 4D [facility]: [employer] LIMITATIONS: None. FINDINGS: Limited evaluation of brain parenchyma is unremarkable. The globes are intact. Superficial soft tissue swelling along the right face and cheek. No discrete or defined abscess. No acute osseous abnormality. The paranasal sinuses are well aerated. Several, likely reactive jugulodigastric chain lymph nodes are noted on the right IMPRESSION: Findings likely reflective of right facial cellulitis with a few reactive lymph nodes. TECHNICAL DOCUMENTATION: Quality ID # [id number]: Final reports with documentation of one or more dose reduction techniques (e.g., Automated exposure control, adjustment of the mA and/or kV according to patient size, use of iterative reconstruction technique) copyright 2010 [employer]- All Rights Reserved
== END 2019-07-01 03:25 | disposition home or self-care (01) ==
LOC: ER 00:53
DX: K04.7 Periapical abscess without sinus (principal); R22.0 Localized swelling, mass and lump, head
CPT/HCPCS: 99284; 96361; 96374; 36415; 85025; 80048; 70487; J2270; J7030

== ENCOUNTER 2019-09-20 03:46 | Emergency (ER) | payer SELFPAY ==
[2019-09-20] MEDS ORDERED: PENICILLIN V POTASSIUM 500 MG TABLET PO ONE (04:09)
[2019-09-20] MEDS ORDERED: BUPIVACAINE HCL 0.75% INJ/PF (7.5 MG/1 ML) 10 ML SDV INJ ONE (04:09)
--- NOTE | 2019-09-20 04:10 | ER Document Report ---
HPI - HPI Time Seen by Provider: 09/20/19 04:05 Pain Level: 5 Context: Patient is a 29-year-old male that comes to the emergency department for chief complaint of severe pain in his left lower jaw with radiation to the face and up towards the left ear. He states that he has a known broken tooth in that area, he states that he started developing pain, tried to use curk-wro-osvevwv remedies, however tonight the pain became severe. He denies sore throat, neck pain, fever/chills, or any other complaints at this time. He denies any past medical history. Past Medical History - General Information source: Patient - Social History Smoking Status: Current Every Day Smoker Frequency of alcohol use: None Drug Abuse: None Lives with: Family Family History: Reviewed & Not Pertinent Patient has suicidal ideation: No Patient has homicidal ideation: No - Medical History Medical History: Negative Renal/ Medical History: Denies: Hx Peritoneal Dialysis Musculoskeletal Medical History: Reports Hx Musculoskeletal Deformity, Reports Hx Musculoskeletal Trauma Traumatic Medical History: Reports: Hx Fractures - Right wrist fracture right thumb Past Surgical History: Reports: Hx Oral Surgery - [place] teeth, Hx Orthopedic Surgery - right wrist surg. - Immunizations Hx Diphtheria, Pertussis, Tetanus Vaccination: Yes Vertical Provider Document - CONSTITUTIONAL General Appearance: Mild Distress - Patient is holding the left side of his face, appears uncomfortable, appears to have recently been crying - INFECTION CONTROL TRAVEL OUTSIDE OF THE [place] IN LAST 30 DAYS: No - HEENT HEENT: Atraumatic, Normocephalic, PERRLA. negative: Conjuctival Injection, Pharyngeal Exudate, Pharyngeal Tenderness, Pharyngeal Erythema, Tympanic Membrane Red Mouth Diagram: 1 - Dental caries with surrounding erythema and tenderness. No noted induration, fluctuance, or abscess. Unremarkable oropharyngeal exam otherwise - NECK Neck: Normal Inspection. negative: Lymphadenopathy-Left, Lymphadenopathy-Right - RESPIRATORY Respiratory: Breath Sounds Normal, No Respiratory Distress - CARDIOVASCULAR Cardiovascular: Regular Rate, Regular Rhythm - GI/ABDOMEN Gastrointestinal: Abdomen Soft, Abdomen Non-Tender - BACK Back: Normal Inspection - MUSCULOSKELETAL/EXTREMETIES Musculoskeletal/Extremeties: MAEW, FROM, Non-Tender - NEURO Level of Consciousness: Awake, Alert, Appropriate Motor/Sensory: No Motor Deficit, No Sensory Deficit - DERM Integumentary: Warm, Dry, No Rash Course - Re-evaluation Re-evalutation: Patient requesting a dental block. This was performed on request. Patient became calm afterwards, became conversational, stopped holding his jaw. He states appreciation. Starting on antibiotics. Patient call me back in the room, stated that the area has started hurting again. Not sure if patient was touching the area, area was reexamined and there was no swelling, bleeding, or other abnormal finding. Patient will be given a few pain medication to go home with, discussed expectations, follow-up, and return precautions. Patient states appreciation and agreement. - Vital Signs Vital signs: Temp Pulse Resp BP Pulse Ox 97.5 F 78 16 132/88 H 97 09/20/19 03:51 09/20/19 03:51 09/20/19 03:51 09/20/19 03:51 09/20/19 03:51 Procedures - Additional Procedures dental block Notes: Patient verbally requesting an consenting to dental block. This was performed using 3 mL's of 0.75% bupivacaine, this was performed on the left side and the inferior alveolar approach. Patient tolerated very well, very minimal bleeding afterwards, no complications. Discharge - Discharge Clinical Impression: Pain, dental, Dental infection Condition: Stable Disposition: HOME, SELF-CARE Additional Instructions: Your evaluation is consistent with dental fracture and a dental infection. Take the antibiotics as prescribed to completion. Follow-up with the dental clinic referral, call for your appointment. If you do not have this treated this will continue to happen. Come back if you are worse including developing swelling of the face. [facility] [address], [address] Prescriptions: Penicillin V Potassium [Penicillin Vk 500 mg Tablet] 500 mg PO BID #20 tablet
[2019-09-20] MEDS ORDERED: HYDROCODONE/ACETAMINOPHEN 5-325 MG (6 TAB/ER DISP) PO PRN (04:32)
[2019-09-20 04:51] VITALS: BP 120/69
== END 2019-09-20 04:51 | disposition home or self-care (01) ==
LOC: ER 03:46
DX: K04.7 Periapical abscess without sinus (principal); K02.9 Dental caries, unspecified; K08.89 Other specified disorders of teeth and supporting structures; F17.200 Nicotine dependence, unspecified, uncomplicated
CPT/HCPCS: 64450; J3490; 99282

== ENCOUNTER 2020-09-13 12:50 | Emergency (ER) | payer SELFPAY ==
[2020-09-13 13:11] VITALS: BP 125/65
[2020-09-13] MEDS ORDERED: PENICILLIN V POTASSIUM 500 MG TABLET PO ONE (13:11)
[2020-09-13] MEDS ORDERED: LIDOCAINE 2% VISCOUS SOLN 15 ML UDCUP PO ONE (13:11)
--- NOTE | 2020-09-13 13:13 | ER Document Report ---
HPI - HPI Patient complains to provider of: toothache Time Seen by Provider: 09/13/20 13:06 Onset: This morning Onset/Duration: Gradual Quality of pain: Achy Pain Level: 4 Context: Patient woke up complaining of dental pain early this morning. Patient denies any fever or facial swelling. Patient reports history of broken tooth. Associated Symptoms: Earache, Other - Dental pain Exacerbated by: Denies Relieved by: Denies Similar symptoms previously: Yes Recently seen / treated by doctor: No - ROS ROS below otherwise negative: Yes Systems Reviewed and Negative: Yes All other systems reviewed and negative - CONSTITUTIONAL Constitutional: DENIES: Fever, Chills - EENT EENT: DENIES: Sore Throat Notes: Dental pain - NEURO Neurology: DENIES: Headache - RESPIRATORY Respiratory: DENIES: Coughing - GASTROINTESTINAL Gastrointestinal: DENIES: Nausea, Patient vomiting - DERM Skin Color: Normal Skin Problems: None Past Medical History - General Information source: Patient - Social History Smoking Status: Current Every Day Smoker Frequency of alcohol use: None Drug Abuse: None Occupation: Self-employed Family History: Reviewed & Not Pertinent - Medical History Medical History: Negative Renal/ Medical History: Denies: Hx Peritoneal Dialysis Musculoskeletal Medical History: Reports Hx Musculoskeletal Deformity, Reports Hx Musculoskeletal Trauma Traumatic Medical History: Reports: Hx Fractures - Right wrist fracture right thumb Past Surgical History: Reports: Hx Oral Surgery - [place] teeth, Hx Orthopedic Surgery - right wrist surg. - Immunizations Hx Diphtheria, Pertussis, Tetanus Vaccination: Yes Vertical Provider Document - CONSTITUTIONAL Agree With Documented VS: Yes Exam Limitations: No Limitations General Appearance: WD/WN, No Apparent Distress - INFECTION CONTROL TRAVEL OUTSIDE OF THE [place] IN LAST 30 DAYS: No - HEENT HEENT: Atraumatic, Normocephalic. negative: Pharyngeal Tenderness, Pharyngeal Erythema, Tympanic Membrane Red Mouth Diagram: 1 - Tenderness, dental decay, no trismus, no gingival swelling, no drainable abscess - NECK Neck: Normal Inspection, Supple. negative: Lymphadenopathy-Right - RESPIRATORY Respiratory: Breath Sounds Normal, No Respiratory Distress - CARDIOVASCULAR Cardiovascular: Regular Rate, Regular Rhythm - MUSCULOSKELETAL/EXTREMETIES Musculoskeletal/Extremeties: MAEW - NEURO Level of Consciousness: Awake, Alert, Appropriate Motor/Sensory: No Motor Deficit - DERM Integumentary: Warm, Dry, No Rash Course - Re-evaluation Re-evalutation: 09/13/20 13:19 Patient with dental pain, no evidence of any drainable abscess, no trismus, no concern for any [employer] or [place] angina. Good return precautions discussed with patient. Patient encouraged to follow-up with a dental care provider. - Vital Signs Vital signs: Temp Pulse Resp BP Pulse Ox 97.7 F 60 16 125/65 98 09/13/20 13:00 09/13/20 13:00 09/13/20 13:00 09/13/20 13:00 09/13/20 13:00 Discharge - Discharge Clinical Impression: Toothache Condition: Stable Disposition: HOME, SELF-CARE Instructions: Dentist, Penicillin V K ([facility]), Toothache ([facility]) Additional Instructions: Return as needed for any new or worsening symptoms follow-up with a dental provider Prescriptions: Naproxen [Naprosyn 250 Nmg Tablet] 1 tab PO BID #14 tablet Penicillin V Potassium [Penicillin Vk 500 mg Tablet] 500 mg PO BID #20 tablet
== END 2020-09-13 13:24 | disposition home or self-care (01) ==
LOC: ER 12:50
DX: K02.9 Dental caries, unspecified (principal); K08.89 Other specified disorders of teeth and supporting structures; F17.200 Nicotine dependence, unspecified, uncomplicated
CPT/HCPCS: 99283; J3490